=== PATIENT | male | born 1965 | race Hispanic/Latino ===

== ENCOUNTER 2019-02-09 11:56 | Emergency (ER) | payer OTHER, SELFPAY ==
[2019-02-09 12:17] VITALS: BP 146/89; PULSE 67; RESP 18; TEMP 36.4; O2SAT 97
--- NOTE | 2019-02-09 13:19 | ED.HA ---
HPI - Headache General Chief Complaint: Headache Stated Complaint: Headache and stomach pain, double vision Time Seen by Provider: 02/09/19 13:11 Source: patient Mode of arrival: ambulatory Limitations: no limitations History of Present Illness HPI Narrative: Patient is a 53-year-old gentleman who presents with a headache ongoing for the last week. He says it is typically about a 1 or 2 in the front of his head. 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 However he has had to take the last 2 days off he had some double vision yesterday. No weakness numbness or tingling. He typically does not get headaches this bad week. 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 MD Complaint: headache Onset (ago): week(s) (1) Onset description: gradual Location: frontal Related Data Previous Rx's Medication Instructions Recorded oxycodone-acetaminophen [Percocet] 1 tab PO Q4HP PRN #15 tab 04/16/16 clindamycin HCl 300 mg PO Q6H #28 cap 09/30/17 oxycodone-acetaminophen [Percocet] 1 tab PO Q4HP PRN #12 tab 09/30/17 prednisone 20 mg PO Q DAY #21 tab 09/30/17 Allergies Allergy/AdvReac Type Severity Reaction Status Date / Time No Known Drug Allergies Allergy Verified 02/09/19 12:20 Review of Systems Review of Systems GENERAL: Denies chills, fatigue, malaise, fever, sweats, travel HEENT: Denies sinus pain, ear pain, sore throat, difficulty swallowing, neck pain RESPIRATORY: Denies dyspnea, cough, wheezing, hemoptysis, sputum. CARDIOVASCULAR: Denies chest pain, palpitations, orthopnea, edema GASTROINTESTINAL: Denies nausea, vomiting, abdominal pain, diarrhea, constipation, melena. : Denies dysuria, frequency, incontinence, hematuria, urinary retention, flank pain. MUSCULOSKELETAL: Denies weakness, joint pain, or bony pain SKIN: No rash, no erythema, no pruritus NEUROLOGIC: See HPI PSYCHIATRIC: No concerning psychosocial issues. 12 point review of systems is negative except for those stated above and HPI [facility] Medical History Farmer's palsy (Acute) Social History Smoking Status: Current some day smoker Social History (Updated 02/09/19 @ 13:33 by Karen Chavis DO) marital status: Smoking Status: Current some day smoker Exam Initial Vital Signs Initial Vital Signs: Vital Signs Temperature 97.6 F 02/09/19 12:17 Pulse Rate 67 02/09/19 12:17 Respiratory Rate 18 02/09/19 12:17 Blood Pressure 146/89 H 02/09/19 12:17 Pulse Oximetry 97 02/09/19 12:17 GENERAL: Well-appearing, well-nourished and in no acute distress. HEENT: Head atraumatic,EOMI, pupils reactive, face symmetric, moist mucous membranes CARDIOVASCULAR: Regular rate and rhythm without murmurs, rubs or gallops. RESPIRATORY: Breath sounds equal bilaterally, no wheezes rales or rhonchi. ABDOMEN: Soft, nontender. Normoactive bowel sounds all 4 quadrants. No guarding or rebound. EXTREMITIES: Normal range of motion, no clubbing or edema. Neurovascularly intact NEUROLOGICAL: Alert and oriented x4.Normal gait and speech. Cranial nerves II through XII grossly intact. Skin Tanner strength equal bilaterally good lower extremity strength SKIN: Warm, dry, no laceration, no petechiae, no rashes or lesions. Scores NIH Stroke Scale Level of Conciousness: Alert, keenly responsive Ask month/age: Answers both questions correctly. Open/close eyes, close hand: Performs both tasks correctly Best gaze horizontal: Normal Visual yousif: No visual loss Facial palsy: Normal symetrical movement Left arm drift: No drift for full 10 sec Right arm drift: No drift for full 10 sec Left leg drift: No drift for full 10 sec Right leg drift: No drift for full 10 sec Limb ataxia: Absent Sensory on face/arms/legs: Normal, no sensory loss Best language: No aphasia, normal Dysarthria: Normal Extinction or inattention: No abnormality Total NIH Stroke scale score: 0 Course Orders Ordered: ED Orders 02/09/19 12:21 EKG-12 Lead Stat 02/09/19 13:26 CT head/brain wo con Stat Discontinued Medications Ketorolac Tromethamine (Toradol) 30 mg IM NOW ONE Stop: 02/09/19 13:27 Last Admin: 02/09/19 13:39 Dose: 30 mg Vital Signs - 8 hr 02/09/19 12:17 02/09/19 13:58 Temperature 97.6 F Pulse Rate 67 56 L Respiratory Rate 18 20 Blood Pressure 146/89 H Blood Pressure [Right Arm] 118/67 Pulse Oximetry 97 94 [facility] - Headache Imaging Data CT scan - head: Radiologist's impression: PROCEDURE: CT HEAD/BRAIN WO CON INDICATIONS: headache for 1 week double vision TECHNIQUE: Noncontrast 4.5 mm thick angled axial sections acquired from the foramen magnum to the vertex, with coronal and sagittal reformats. For radiation dose reduction, the following was used: automated exposure control, adjustment of mA and/or kV according to patient size. COMPARISON: None. FINDINGS: Image quality: Diagnostic. CSF spaces: Basal cisterns are patent. No extra-axial fluid collections. Ventricles are normal in size and shape. Brain: No midline shift. No intracranial masses or hemorrhage. Abdullahi-white matter interface is normal. Skull and face: Calvarium and visualized facial bones are intact, without suspicious lesions. Sinuses: Visualized sinuses and mastoids are clear. IMPRESSION: Negative head CT. No acute intracranial hemorrhage. Dictated by: Chad Laguerre M.D. on 02/09/2019 at 12:45 Approved by: Chad Laguerre M.D. on 02/09/2019 at 12:47 [facility] Narrative Medical decision making narrative: Patient's headache is really about 1 or 2. Toradol has not seem to help much. But he overall feels like he is able to go home. Mostly worried about headache and double vision. Which actually was not today, and has resolved. He has no focal deficits. Recommended resting and hydrating. Discharge Plan Departure Patient Disposition: Home Clinical Impression: Headache Qualifiers: Headache type: tension-type Headache chronicity pattern: acute headache Intractability: not intractable Qualified Code(s): G44.209 - Tension-type headache, unspecified, not intractable Discharge Date/Time: 02/09/19 14:31 Interventions: ED Discharge Assessment Last Done: 02/09/19 14:30 Instructions: DI for Headache Activity Restrictions/Additional Instructions: *You have been diagnosed with headache *What to do: CT scan today is negative. Recommend resting and hydration *Continue to take medications as directed *Follow up with your primary care provider in 2-3 days *Return to ER if you should have worsening headache, fever, neck pain, visual change or any new, worsening or concerning symptoms Prescriptions: No Action oxycodone-acetaminophen [Percocet] 5 MG/325 MG tablet 1 tab PO Q4HP PRNQty: 15 RF: 0 clindamycin HCl 300 MG capsule 300 mg PO Q6H Qty: 28 RF: 0 prednisone 20 MG tablet 20 mg PO Q DAY Qty: 21 RF: 0 oxycodone-acetaminophen [Percocet] 5 MG/325 MG tablet 1 tab PO Q4HP PRNQty: 12 RF: 0 Referrals: Paula Saldaña DO [Primary Care Provider] -
--- NOTE | 2019-02-09 13:26 | DI.CT.S_ITS ---
PROCEDURE: CT HEAD/BRAIN WO CON INDICATIONS: headache for 1 week double vision TECHNIQUE: Noncontrast 4.5 mm thick angled axial sections acquired from the foramen magnum to the vertex, with coronal and sagittal reformats. For radiation dose reduction, the following was used: automated exposure control, adjustment of mA and/or kV according to patient size. COMPARISON: None. FINDINGS: Image quality: Diagnostic. CSF spaces: Basal cisterns are patent. No extra-axial fluid collections. Ventricles are normal in size and shape. Brain: No midline shift. No intracranial masses or hemorrhage. Abdullahi-white matter interface is normal. Skull and face: Calvarium and visualized facial bones are intact, without suspicious lesions. Sinuses: Visualized sinuses and mastoids are clear. IMPRESSION: Negative head CT. No acute intracranial hemorrhage. Dictated by: Chad Laguerre M.D. on 02/09/2019 at 12:45 Approved by: Chad Laguerre M.D. on 02/09/2019 at 12:47
--- NOTE | 2019-02-09 13:33 | ED_ITS ---
HPI - Headache General Chief Complaint: Headache Stated Complaint: Headache and stomach pain, double vision Time Seen by Provider: 02/09/19 13:11 Source: patient Mode of arrival: ambulatory Limitations: no limitations History of Present Illness HPI Narrative: Patient is a 53-year-old gentleman who presents with a headache ongoing for the last week. He says it is typically about a 1 or 2 in the front of his head. 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 However he has had to take the last 2 days off he had some double vision yesterday. No weakness numbness or tingling. He typically does not get headaches this bad week. 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 MD Complaint: headache Onset (ago): week(s) (1) Onset description: gradual Location: frontal Related Data Previous Rx's Medication Instructions Recorded oxycodone-acetaminophen [Percocet] 1 tab PO Q4HP PRN #15 tab 04/16/16 clindamycin HCl 300 mg PO Q6H #28 cap 09/30/17 oxycodone-acetaminophen [Percocet] 1 tab PO Q4HP PRN #12 tab 09/30/17 prednisone 20 mg PO Q DAY #21 tab 09/30/17 Allergies Allergy/AdvReac Type Severity Reaction Status Date / Time No Known Drug Allergies Allergy Verified 02/09/19 12:20 Review of Systems Review of Systems GENERAL: Denies chills, fatigue, malaise, fever, sweats, travel HEENT: Denies sinus pain, ear pain, sore throat, difficulty swallowing, neck pain RESPIRATORY: Denies dyspnea, cough, wheezing, hemoptysis, sputum. CARDIOVASCULAR: Denies chest pain, palpitations, orthopnea, edema GASTROINTESTINAL: Denies nausea, vomiting, abdominal pain, diarrhea, constipation, melena. : Denies dysuria, frequency, incontinence, hematuria, urinary retention, flank pain. MUSCULOSKELETAL: Denies weakness, joint pain, or bony pain SKIN: No rash, no erythema, no pruritus NEUROLOGIC: See HPI PSYCHIATRIC: No concerning psychosocial issues. 12 point review of systems is negative except for those stated above and HPI [facility] Medical History Farmer's palsy (Acute) Social History Smoking Status: Current some day smoker Social History (Updated 02/09/19 @ 13:33 by Karen Chavis DO) marital status: Smoking Status: Current some day smoker Exam Initial Vital Signs Initial Vital Signs: Vital Signs Temperature 97.6 F 02/09/19 12:17 Pulse Rate 67 02/09/19 12:17 Respiratory Rate 18 02/09/19 12:17 Blood Pressure 146/89 H 02/09/19 12:17 Pulse Oximetry 97 02/09/19 12:17 GENERAL: Well-appearing, well-nourished and in no acute distress. HEENT: Head atraumatic,EOMI, pupils reactive, face symmetric, moist mucous membranes CARDIOVASCULAR: Regular rate and rhythm without murmurs, rubs or gallops. RESPIRATORY: Breath sounds equal bilaterally, no wheezes rales or rhonchi. ABDOMEN: Soft, nontender. Normoactive bowel sounds all 4 quadrants. No guarding or rebound. EXTREMITIES: Normal range of motion, no clubbing or edema. Neurovascularly intact NEUROLOGICAL: Alert and oriented x4.Normal gait and speech. Cranial nerves II through XII grossly intact. Drug Room Operator strength equal bilaterally good lower extremity strength SKIN: Warm, dry, no laceration, no petechiae, no rashes or lesions. Scores NIH Stroke Scale Level of Conciousness: Alert, keenly responsive Ask month/age: Answers both questions correctly. Open/close eyes, close hand: Performs both tasks correctly Best gaze horizontal: Normal Visual yousif: No visual loss Facial palsy: Normal symetrical movement Left arm drift: No drift for full 10 sec Right arm drift: No drift for full 10 sec Left leg drift: No drift for full 10 sec Right leg drift: No drift for full 10 sec Limb ataxia: Absent Sensory on face/arms/legs: Normal, no sensory loss Best language: No aphasia, normal Dysarthria: Normal Extinction or inattention: No abnormality Total NIH Stroke scale score: 0 Course Orders Ordered: ED Orders 02/09/19 12:21 EKG-12 Lead Stat 02/09/19 13:26 CT head/brain wo con Stat Discontinued Medications Ketorolac Tromethamine (Toradol) 30 mg IM NOW ONE Stop: 02/09/19 13:27 Last Admin: 02/09/19 13:39 Dose: 30 mg Vital Signs - 8 hr 02/09/19 12:17 02/09/19 13:58 Temperature 97.6 F Pulse Rate 67 56 L Respiratory Rate 18 20 Blood Pressure 146/89 H Blood Pressure [Right Arm] 118/67 Pulse Oximetry 97 94 [facility] - Headache Imaging Data CT scan - head: Radiologist's impression: PROCEDURE: CT HEAD/BRAIN WO CON INDICATIONS: headache for 1 week double vision TECHNIQUE: Noncontrast 4.5 mm thick angled axial sections acquired from the foramen magnum to the vertex, with coronal and sagittal reformats. For radiation dose reduction, the following was used: automated exposure control, adjustment of mA and/or kV according to patient size. COMPARISON: None. FINDINGS: Image quality: Diagnostic. CSF spaces: Basal cisterns are patent. No extra-axial fluid collections. Ventricles are normal in size and shape. Brain: No midline shift. No intracranial masses or hemorrhage. Abdullahi-white matter interface is normal. Skull and face: Calvarium and visualized facial bones are intact, without suspicious lesions. Sinuses: Visualized sinuses and mastoids are clear. IMPRESSION: Negative head CT. No acute intracranial hemorrhage. Dictated by: Chad Laguerre M.D. on 02/09/2019 at 12:45 Approved by: Chad Laguerre M.D. on 02/09/2019 at 12:47 [facility] Narrative Medical decision making narrative: Patient's headache is really about 1 or 2. Toradol has not seem to help much. But he overall feels like he is able to go home. Mostly worried about headache and double vision. Which actually was not today, and has resolved. He has no focal deficits. Recommended resting and hydrating. Discharge Plan Departure Patient Disposition: Home Clinical Impression: Headache Qualifiers: Headache type: tension-type Headache chronicity pattern: acute headache Intractability: not intractable Qualified Code(s): G44.209 - Tension-type headache, unspecified, not intractable Discharge Date/Time: 02/09/19 14:31 Interventions: ED Discharge Assessment Last Done: 02/09/19 14:30 Instructions: DI for Headache Activity Restrictions/Additional Instructions: *You have been diagnosed with headache *What to do: CT scan today is negative. Recommend resting and hydration *Continue to take medications as directed *Follow up with your primary care provider in 2-3 days *Return to ER if you should have worsening headache, fever, neck pain, visual change or any new, worsening or concerning symptoms Prescriptions: No Action oxycodone-acetaminophen [Percocet] 5 MG/325 MG tablet 1 tab PO Q4HP PRNQty: 15 RF: 0 clindamycin HCl 300 MG capsule 300 mg PO Q6H Qty: 28 RF: 0 prednisone 20 MG tablet 20 mg PO Q DAY Qty: 21 RF: 0 oxycodone-acetaminophen [Percocet] 5 MG/325 MG tablet 1 tab PO Q4HP PRNQty: 12 RF: 0 Referrals: Paula Saldaña DO [Primary Care Provider] -
[2019-02-09] MEDS: KETOROLAC 60 MG/2 ML VIAL 30 MG IM (13:39)
[2019-02-09 13:58] VITALS: BP 118/67; PULSE 56; RESP 20; O2SAT 94
== END 2019-02-09 14:31 | disposition home or self-care (01) ==
PROVIDERS: Emergency Provider Emergency Medicine; PCP Family Medicine
DX: G44.209 Tension-type headache, unspecified, not intractable (principal); H53.2 Diplopia; R10.9 Unspecified abdominal pain; R03.0 Elevated blood-pressure reading, without diagnosis of hypertension
CPT/HCPCS: 70450; 93005; 93010; 96372; 99282; 99284; J1885

== ENCOUNTER 2022-04-24 14:34 | Emergency (ER) | payer OTHER, SELFPAY ==
[2022-04-24 15:02] VITALS: BP 151/84; PULSE 66; RESP 18; TEMP 36.9; O2SAT 98; BMI 29.8
--- NOTE | 2022-04-24 15:05 | DI.RAD.S_ITS ---
PROCEDURE: XR FINGER RT MIN 2V INDICATIONS: patient states smashed hand, painful/crooked TECHNIQUE: AP hand, 2 views of the small finger(s) acquired. COMPARISON: None. FINDINGS: Bones: No fractures or dislocations. No suspicious bony lesions. Soft tissues: No suspicious soft tissue calcifications. IMPRESSION: No evidence of acute bony abnormality of the right small finger. Dictated by: Pb Villegas M.D. on 04/24/2022 at 14:26 Approved by: Pb Villegas M.D. on 04/24/2022 at 14:28
--- NOTE | 2022-04-24 15:57 | ED.UPPEXIN ---
HPI - Extremity Injury (Upper) <ELIZABETH Eckert - Last Filed: 04/24/22 16:37> General Chief Complaint: Extremity Injury, Upper Stated Complaint: POSS BROKEN RIGHT PINKY FINGER Time Seen by Provider: 04/24/22 15:19 Source: patient Mode of arrival: Ambulatory History of Present Illness HPI narrative: 56-year-old male presents to the emergency department with complaints of right hand 5th digit pain and swelling secondary to jamming his finger 2 weeks ago. Patient has full range of motion but noticed swelling of the proximal joint. Patient's spouse insisted he come in for evaluation. 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 Related Data Previous Rx's Medication Instructions Recorded oxycodone-acetaminophen 5 mg-325 1 tab PO Q4HP PRN #15 tabs 04/16/16 mg tablet (Percocet) clindamycin HCl 300 mg capsule 300 mg PO Q6H #28 caps 09/30/17 oxycodone-acetaminophen 5 mg-325 1 tab PO Q4HP PRN #12 tabs 09/30/17 mg tablet (Percocet) prednisone 20 mg tablet 20 mg PO Q DAY #21 tabs 09/30/17 Allergies Allergy/AdvReac Type Severity Reaction Status Date / Time No Known Drug Allergies Allergy Verified 04/24/22 15:05 Review of Systems <ELIZABETH Eckert - Last Filed: 04/24/22 16:37> Review of Systems Narrative: Narrative: GENERAL: Denies chills, fatigue, fever, sweats. See HPI HEENT: Denies sinus pain, ear pain, sore throat, difficulty swallowing, dizziness. RESPIRATORY: Denies dyspnea, cough, wheezing, sputum. CARDIOVASCULAR: Denies chest pain, palpitations, edema. GASTROINTESTINAL: Denies nausea, vomiting, abdominal pain, diarrhea, constipation. : Denies dysuria, frequency, incontinence, hematuria, urinary retention, flank pain. MSK: Denies weakness, joint pain, or bony pain. SKIN: Denies rash, skin lesions, or pruritis. NEUROLOGIC: Denies weakness, dizziness, headache, numbness, confusion. PSYCHIATRIC: No concerning psychosocial issues. Patient History <ELIZABETH Eckert - Last Filed: 04/24/22 16:37> Medical History Farmer's palsy Social History marital status: Smoking Status: Current some day smoker Smoking Status: Current some day smoker alcohol intake frequency: holidays/special occasions only Substance Use Type: does not use Exam <ELIZABETH Eckert - Last Filed: 04/24/22 16:37> Narrative Exam Narrative: Exam Narrative: GENERAL: This is a well-nourished, well-developed patient, in no acute distress HEAD: Atraumatic. Normocephalic. EYES: Pupils equal round and reactive. Extraocular motions intact. No scleral icterus, injection or drainage. MSK: Moves all extremities. Normal range of motion, no clubbing or edema. Neurovascularly intact. Mild swelling to right hand 5th digit medial aspect of proximal interphalangeal joint. NEURO: A&O x 3. SKIN: Warm, dry, no rashes or lesions noted. Initial Vital Signs Initial Vital Signs: Vital Signs Temperature 98.4 F 04/24/22 15:02 Pulse Rate 66 04/24/22 15:02 Respiratory Rate 18 04/24/22 15:02 Blood Pressure 151/84 H 04/24/22 15:02 Pulse Oximetry 98 04/24/22 15:02 Oxygen Delivery Method 04/24/22 15:02 Reviewed <Karen Chavis DO - Last Filed: 04/25/22 07:47> Initial Vital Signs Initial Vital Signs: Vital Signs Temperature 98.4 F 04/24/22 15:02 Pulse Rate 66 04/24/22 15:02 Respiratory Rate 18 04/24/22 15:02 Blood Pressure 151/84 H 04/24/22 15:02 Pulse Oximetry 98 04/24/22 15:02 Oxygen Delivery Method 04/24/22 15:02 Course <ELIZABETH Eckert - Last Filed: 04/24/22 16:37> Orders Ordered: ED Orders 04/24/22 15:05 XR finger RT min 2V Stat Vital Signs Vital signs: Vital Signs - 8 hr 04/24/22 15:02 04/24/22 16:18 Temperature 98.4 F Pulse Rate 66 76 Respiratory Rate 18 24 Blood Pressure 151/84 H 152/86 H Pulse Oximetry 98 98 Oxygen Delivery Method Room Air Room Air <Karen Chavis DO - Last Filed: 04/25/22 07:47> Orders Ordered: ED Orders 04/24/22 15:05 XR finger RT min 2V Stat Vital Signs Vital signs: Vital Signs - 8 hr 04/24/22 15:02 04/24/22 16:18 Temperature 98.4 F Pulse Rate 66 76 Respiratory Rate 18 24 Blood Pressure 151/84 H 152/86 H Pulse Oximetry 98 98 Oxygen Delivery Method Room Air Room Air MDM - Extremity Injury (Upper) <ELIZABETH Eckert - Last Filed: 04/24/22 16:37> Differential Diagnosis Differential diagnosis: Likely finger sprain; Unlikely fracture of hand Imaging Data Extremity x-ray #1: Radiologist's Impression: [address] [address] XRay Report Signed Patient: Terence Rinaldi MR#: [id number] : 1965 Acct:[id number] Age/Sex: 56 / M Date of Service: 04/24/22 Loc: ED Accession Number: [id number] ?? Procedure: XR finger RT min 2V Ordering Provider: Karen Chavis D.O. PROCEDURE:? XR FINGER RT MIN 2V ? INDICATIONS:? patient states smashed hand, painful/crooked ? TECHNIQUE:? AP hand, 2 views of the small finger(s) acquired.? ? COMPARISON:? None. ? FINDINGS:? ? Bones:? No fractures or dislocations.? No suspicious bony lesions.? ? Soft tissues:? No suspicious soft tissue calcifications.? ? IMPRESSION:? No evidence of acute bony abnormality of the right small finger. ? ? Dictated by: Pb Villegas M.D. on 04/24/2022 at 14:26 ? ? Approved by: Pb Villegas M.D. on 04/24/2022 at 14:28 ? MDM Narrative Medical decision making narrative: 56-year-old male with right hand 5th digit pain x2 weeks. X-ray was negative for fracture. Full strength and range of motion finger. Recommended rice and NSAIDs. Discussed plan of care and discharge instructions with patient and spouse, who were agreeable to course of action. Discharge Plan Departure Patient Disposition: Home Clinical Impression: Finger sprain Instructions: DI for Finger Sprain Activity Restrictions/Additional Instructions: *You have been diagnosed with a right pinky finger sprain. Your x-ray was negative you have not fractured your finger. As we discussed I recommend continued use of Rest (modified activity), along with ice, compression wrap/splint-immobilize as directed and elevation above heart. Tylenol or Ibuprofen for discomfort. Follow up with her family doctor as needed. *What to do: *Please continue to take your regular medications as directed. [ ] New medication prescriptions sent to your pharmacy: [ ] [ ] New medication written as a paper prescription [ x] No new medications given *Please follow up with your primary care provider in 2-3 days, call for an appointment. Let them know you were seen in the Emergency Department and that we ask that you be seen in follow up. We will electronically transmit a record of today's note if your PCP is in our system *If you do not have a primary care provider please contact the [facility] Resource line at [phone]. They will ask some questions about your medical history and help get you set up with a doctor in the community. ? Return to ER if you should have any new, worsening or concerning symptoms, such as worsening pain, severe headache, confusion, chest pain, difficulty breathing, fever greater than 101 F, shaking chills, persistent vomiting to the point that you cannot drink fluids, or other new or worsening symptoms. Prescriptions: No Action oxycodone-acetaminophen [Percocet] 5 MG/325 MG tablet 1 tab PO Q4HP PRNQty: 15 0RF clindamycin HCl 300 MG capsule 300 mg PO Q6H Qty: 28 0RF prednisone 20 MG tablet 20 mg PO Q DAY Qty: 21 0RF oxycodone-acetaminophen [Percocet] 5 MG/325 MG tablet 1 tab PO Q4HP PRNQty: 12 0RF Referrals: Paula Saldaña DO [Primary Care Provider] - Visit Report Forms: Patient Portal/API <Karen Chavis DO - Last Filed: 04/25/22 07:47> Cosign ED Attending Mariposaature Attestation: I was immediately available in the department for consultation. Documentation has been reviewed. I agree with assessment and plan.
[2022-04-24 16:18] VITALS: BP 152/86; PULSE 76; RESP 24; O2SAT 98
== END 2022-04-24 16:38 | disposition home or self-care (01) ==
PROVIDERS: Emergency Provider Registered Nurse; PCP Family Medicine
DX: S63.616A Unspecified sprain of right little finger, initial encounter (principal); W23.0XXA Caught, crushed, jammed, or pinched between moving objects, initial encounter
CPT/HCPCS: 73140; 99281; 99283